=== PATIENT | female | born 1975 | race Caucasian/White ===

== ENCOUNTER 2018-02-10 02:15 | Inpatient (IN) ==
[2018-02-10] MEDS ORDERED: Ondansetron 4 MG/2 ML VIAL IVP PRN (06:13)
[2018-02-10] MEDS ORDERED: Naloxone 0.4 MG/ML INJ IVP PRN (06:13)
--- NOTE | 2018-02-10 06:26 | Internal Med History&Physical ---
Date of Encounter: 02/10/18 Time of Encounter: 06:00 Internal Medicine - H&P: HPI Chief complaint: abdominal pain Admitted From: Hospital to Hospital Transfer Plans for Post Hospital Care: Home History of present illness: Ms. Oglesby is a 42 year old female who presents with a 2 day history of abdominal pain, cramping, appetite loss, and nausea. Symptoms progressively worsened to the point abdominal pain cramping were unbearable. She went to the ER tonight at [facility] and was diagnosed with small bowel obstruction. ER doctor contacted Dr. Dumont for transfer request. Dr. Dumont reviewed the films and felt that this was not acutely surgical. He requested patient be transferred to the hospitalist service with surgical consultation. I spoke with the ER staff at [facility] and accepted the patient in transfer. Upon my assessment of the patient, she is quite uncomfortable. She does have significant pain, which is easily reproducible to palpation. She denies any fevers, chills, night sweats, diarrhea, melena, or hematochezia. She has had some nausea and some vomiting with appetite loss the last 2 days. She denies any recent ill contacts. She has had no prior surgical history except for sections. I reviewed her labs at [facility] and note that she had positive drug screen for amphetamines, marijuana, and opiates. Opiates were positive due to pain medications received at [facility] ER. Patient did admit to using amphetamines this weekend and occasional marijuana. She states she rarely ever uses amphetamines. She denies any cocaine use. She does not drink alcohol but she does smoke. Past Med Surg Social Fam HX - Past Medical History Attestation: Yes The following information was validated with the patient. Source: patient, other (ER records at [facility]) Medical history: migraine Psychiatric history: no psych history - Past Surgical History Surgical History: Additional surgical history: x 3 - Social History Smoking Status: Current every day smoker Packs per day: 0.5 Smokeless Tobacco Status: No Alcohol use: occasionally Drug use: marijuana, methamphetamine Current living situation: Home, With Family Activity Level: Independent ambulation Recent Out of Country Travel Within the Last 8 Weeks: No - Family History Mother Hx Family GI Disorders: No Father Hx Family GI Disorders: No Internal Medicine - H&P: Meds No Known Home Drugs 02/10/18 [History] 3 Allergy/AdvReac Type Severity Reaction Status Date / Time Penicillins Allergy Hives Verified 02/09/18 23:06 - Constitutional Constitutional: no chills, no fever(s), no night sweats - EENT Eyes: no blurry vision, no change in vision Ears: no ear pain, no tinnitus Nose, mouth and throat: no sore throat - Cardiovascular Cardiovascular ROS IM: no chest pain, no dyspnea, no dyspnea on exertion, no edema - Respiratory Respiratory: no cough, no hemoptysis, no chest congestion - Gastrointestinal Gastrointestinal: abdominal pain, cramping, nausea, vomiting, no diarrhea, no hematemesis, no hematochezia, no melena - Genitourinary Genitourinary: no dysuria, no flank pain, no hematuria - Musculoskeletal Musculoskeletal ROS IM: no arthralgias, no back pain - Integumentary Integumentary IM: no rash, no jaundice - Neurological Neurological ROS: no dizziness, no focal weakness, no frequent falls, no headache(s) - Psychiatric Psychiatric: anxiety, no depression - Endocrine Endocrine IM: no polydipsia, no polyuria - Allergic/Immunologic Allergic/Immunologic: no GI upset with certain foods - Constitutional Vitals: Temp Pulse Resp BP Pulse Ox 97.6 F 76 14 101/53 98 02/10/18 05:03 02/10/18 05:03 02/10/18 05:03 02/10/18 05:03 02/10/18 05:03 General appearance: Present: cooperative, mild distress (uncomfortable due to abdominal pain), A&O X 3, pleasant, answers questions appropriately Exam: see below - Head Head exam: Present: normal inspection - Eye Eye exam: Present: EOMI, PERRL. Absent: scleral icterus Pupils: Present: normal accommodation - ENT ENT exam: Present: mucous membranes dry, normal exam, normal oropharynx - Neck Neck exam general surgery: Present: full ROM, supple. Absent: tenderness, nuchal rigidity, thyromegaly - Respiratory Respiratory exam: Present: CTAB. Absent: chest wall tenderness, rales, rhonchi , wheezes - Cardiovascular Cardiovascular exam: Present: RRR, +S1, +S2. Absent: diastolic murmur, systolic murmur, tachycardia - GI/Abdominal GI/Abdominal exam: Present: distended, guarding, hypoactive bowel sounds, tenderness (BLQ; + rebound tenderness to percussion and palpation). Absent: mass - Extremities Exam Extremities exam: Present: full ROM, normal capillary refill, warm, radial pulses palpable and symmetrical. Absent: calf tenderness, joint swelling, pedal edema, tenderness - Back Exam Back exam: Absent: CVA tenderness (L), CVA tenderness (R) - Neurological Exam Neurological exam: Present: alert, CN II-XII intact, oriented X3 - Psychiatric Psychiatric exam: Present: anxious, depressed - Skin Skin exam: Present: dry, intact, warm Internal Med - H&P Results - Labs Labs: I reviewed labs from [facility] and include the following: WBC 18.8 Hemoglobin 12.8 Hematocrit 36.8 Platelet count 280 Sodium 135 Potassium 3.3 Chloride 102 CO2 25 BUN 22 Creatinine 0.86 U/A suggestive of UTI UDS + for opiates, amphetamines, marijuana CT abdomen report reviewed -- possible SBO - Assessment and plan (1) Acute abdominal pain Current Visit: Yes Status: Acute Assessment and plan: 1. Suspicion for SBO based upon CT and exam findings. 2. Will keep npo, on IVF, pain control, anti-emetics, and IV antibiotics. 3. Consult surgery -- discussed with Dr. Dumont. He will see patient this morning. (2) Drug abuse Current Visit: Yes Status: Acute Assessment and plan: 1. Patient admits to amphetamine use infrequently. 2. Counseled patient on cessation and recommend referral per outreach and education social worker. (3) DVT prophylaxis Current Visit: Yes Status: Acute Assessment and plan: 1. Heparin SQ.
[2018-02-10 07:02] LABS: Basophils % 0.2 %; Eosinophils # 0.1 K/mcL (0.0-0.6); Eosinophils % 0.4 %; Hematocrit 33.3 % (35.3-44.9); Hemoglobin 11.2 g/dL (11.5-15.4); Immature Granulocytes % 1.1 % (0-4); Lymphocytes # 1.4 K/mcL (0.6-4.6); Mean Corpuscular HGB Conc 33.6 g/dL (31.6-35.5); Mean Corpuscular Hemoglobin 31.7 pg (28.0-33.3); Mean Corpuscular Volume 94.3 fL (83.0-100.0); Mean Platelet Volume 9.7 fL (9.4-12.4); Monocytes # 0.5 K/mcL (0.0-1.3); Monocytes % 2.8 %; Neutrophils # 14.9 K/mcL (1.6-8.9); Platelet Count 226 K/mcL (140-400); Red Blood Count 3.53 M/mcL (3.82-4.97); Red Cell Distribution Width 13.5 % (11.5-14.5); Segmented Neutrophils % 87.5 %
[2018-02-10 07:18] LABS: INR 1.4; Prothrombin Time 15.9 Seconds (9.4-12.1)
[2018-02-10 07:21] LABS: Activated Partial Thrombo Time 28.7 Seconds (26.0-36.0)
[2018-02-10 07:23] LABS: Alanine Aminotransferase 11 Units/L (7-52); Albumin 3.7 g/dL (3.5-5.7); Albumin/Globulin Ratio 1.7 (1.1-2.2); Alkaline Phosphatase 50 Units/L (34-104); Aspartate Amino Transferase 11 Units/L (13-39); BUN/Creatinine Ratio 26 (6-26); Bilirubin,Total 0.8 mg/dL (0.3-1.0); Blood Urea Nitrogen 17 mg/dL (6-20); Calcium 8.3 mg/dL (8.6-10.3); Carbon Dioxide 21 mEq/L (23-29); Chloride 108 mEq/L (98-107); Globulin 2.2 g/dL (2.4-3.5); Glucose 114 mg/dL (70-105); Osmolality,Calculated 284 (280-300); Potassium 3.5 mEq/L (3.5-5.1); Sodium 136 mEq/L (136-145); Total Protein 5.9 g/dL (6.4-8.9); eGFR For Non-African Americans > 60 (> 60)
--- NOTE | 2018-02-10 09:16 | Internal Med Progress Note ---
<Tutu Longoria - Last Filed: 02/10/18 11:37> Hospitalist Progress Note - Encounter Date of Encounter: 02/10/18 Time of Encounter: 09:12 - Subjective Interval History: Pt seen and examined. She states she is still having abdominal pain and nausea but no vomiting. Has not had a bowel movement or passed gas since Thursday. Complains of headaches which are usual for her migraines. Denies any chest pain , shortness of breath, fever, chills, urinary complaints. - Exam Vitals: Temp Pulse Resp BP Pulse Ox 99.2 F 81 14 110/66 92 02/10/18 06:33 02/10/18 06:33 02/10/18 06:33 02/10/18 06:33 02/10/18 06:33 Exam: GEN: No acute distress HEAD: Atraumatic, normocephalic EYES: Pupils symmetric, sclera white, conjunctiva pink HEART: Regular rate and rhythm, normal S1 and S2, no murmurs LUNGS: CTAB ABD: diffusely tender, nondistended, decreased bowel sounds EXT: no erythema, edema, cyanosis NEURO: No focal deficits, cooperative with exam - Assessment and Plan (1) Small bowel obstruction Current Visit: No Status: Acute Assessment and Plan: As seen on CT scan obtained at [facility] Surgery consulted, awaiting recommendations Continue NPO, IVF hydration, anti-emetics and analgesics She was started on Flagyl and Cipro as her white count was elevated and CT showed nonspecific inflammation at the vaginal wall Blood cultures initially negative, awaiting urine culture (2) Acute abdominal pain Current Visit: Yes Status: Acute Assessment and Plan: Secondary to SBO Plan as above for IV medications (3) Drug abuse Current Visit: Yes Status: Acute Assessment and Plan: UDS positive for opiates, meth, and THC She states she is infrequent meth user (4) UTI (urinary tract infection) Current Visit: No Status: Suspected Assessment and Plan: She denies any urinary symptoms but UA was concerning for UTI Will await cultures Continue on Flagyl, Cipro as above (5) DVT prophylaxis Current Visit: Yes Status: Acute Assessment and Plan: Heparin 5000 units BID DVT Prophylaxis: sq hep - Time Spent with Patient Total time spent is greater than 50% in coordination of care (as documented) at patient's floor/unit and/or counseling patient: Internal Medicine: Result - Labs CBC & Chem 7: 02/10/18 06:41 02/10/18 06:41 Labs: Short CBC 02/10/18 Range/Units 06:41 WBC 17.1 H (4.3-11.1) K/mcL Hgb 11.2 L D (11.5-15.4) g/dL Hct 33.3 L (35.3-44.9) % Plt Count 226 (140-400) K/mcL Neutrophils # 14.9 H (1.6-8.9) K/mcL BMP 02/10/18 06:41 Sodium 136 Potassium 3.5 Chloride 108 H Carbon Dioxide 21 L BUN 17 Creatinine 0.66 Glucose 114 H Calcium 8.3 L Liver Function 02/10/18 Range/Units 06:41 Total Bilirubin 0.8 (0.3-1.0) mg/dL AST 11 L (13-39) Units/L ALT 11 (7-52) Units/L Alkaline Phosphatase 50 (34-104) Units/L Albumin 3.7 (3.5-5.7) g/dL - ABG Interpretation ABG results: PT/INR, D-dimer PT 15.9 Seconds (9.4-12.1) H 02/10/18 06:41 Consult Discharge Plan - Plan Referrals: Idris Benitez, CLINICAL SUPPORT MANAGER [Non-Partnered Physician] - 02/18/18 3:00 pm <Flory Moralez - Last Filed: 02/10/18 17:57> Hospitalist Progress Note - Encounter Date of Encounter: 02/10/18 - Exam Vitals: Temp Pulse Resp BP Pulse Ox 98.8 F 73 18 106/70 96 02/10/18 16:03 02/10/18 16:03 02/10/18 16:03 02/10/18 16:03 02/10/18 16:03 - Assessment and Plan (1) Acute abdominal pain Current Visit: Yes Status: Acute (2) Drug abuse Current Visit: Yes Status: Acute (3) DVT prophylaxis Current Visit: Yes Status: Acute - Time Spent with Patient Total time spent is greater than 50% in coordination of care (as documented) at patient's floor/unit and/or counseling patient: Internal Medicine: Result - Labs CBC & Chem 7: 02/10/18 06:41 02/10/18 06:41 Labs: Short CBC 02/10/18 Range/Units 06:41 WBC 17.1 H (4.3-11.1) K/mcL Hgb 11.2 L D (11.5-15.4) g/dL Hct 33.3 L (35.3-44.9) % Plt Count 226 (140-400) K/mcL Neutrophils # 14.9 H (1.6-8.9) K/mcL BMP 02/10/18 06:41 Sodium 136 Potassium 3.5 Chloride 108 H Carbon Dioxide 21 L BUN 17 Creatinine 0.66 Glucose 114 H Calcium 8.3 L Liver Function 02/10/18 Range/Units 06:41 Total Bilirubin 0.8 (0.3-1.0) mg/dL AST 11 L (13-39) Units/L ALT 11 (7-52) Units/L Alkaline Phosphatase 50 (34-104) Units/L Albumin 3.7 (3.5-5.7) g/dL - ABG Interpretation ABG results: PT/INR, D-dimer PT 15.9 Seconds (9.4-12.1) H 02/10/18 06:41 - Attending Attestation I examined this patient and my medical decision-making was reviewed with the Resident Physician Dr. Longoria. I agree with the documented findings, disposition and treatment plan as described except to the extent set forth below. Ms. Oglesby is a 42 year old female who presents with a 2 day history of abdominal pain, cramping, loss of appetite, and nausea. Her CT of abd at [facility] showed ?? SBO and PID. She denied any N/V now. Denied any epigastric abd pain. However she still c/o severe lower abdominal pain, mostly in left side. Gen: A, A, O x3 Chest: Diminished BS b/l Heart: S1S2+ RRR No murmurs Abd: Soft, moderate tenderness in LLQ a/p 1. Acute intractable Abd pain 2. Possible PID 3. ?? SBO Reviewed CT of Abd / Pelvis showed vaginal wall thickening , with fluid in vaginal fornices her pain also concerning for pID will check GC and Chlamydia cont Flagyl also switch to Rocephin Does not look like SBO No need of surgery eval advance diet as she tolerates <Tutu Longoria - Last Filed: 02/10/18 11:37> (4) UTI (urinary tract infection) Qualifiers: Urinary tract infection type: site unspecified Hematuria presence: without hematuria Qualified Code(s): N39.0 - Urinary tract infection, site not specified
[2018-02-10] MEDS: *HR* FentaNYL (PF) 100 MCG/2 ML VIAL IVP PRN ×2 (10:02→17:48)
[2018-02-10] MEDS: MetroNIDAZOLE 500 MG/100 ML 500 MG/100 ML BAG IVPB SCH ×2 (10:03→17:41)
[2018-02-10] MEDS: 0.9 % Sodium Chloride w KCl 20 MEQ/1,000 ML MLS IVC SCH ×2 (10:03→20:39)
--- NOTE | 2018-02-10 16:41 | Electrocardiograph Report ---
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
[2018-02-10] MEDS: *HR* Heparin 5,000 UNIT/ML VIAL SQ SCH (17:40)
[2018-02-11] MEDS: *HR* FentaNYL (PF) 100 MCG/2 ML VIAL IVP PRN ×3 (00:11→10:41)
[2018-02-11] MEDS: MetroNIDAZOLE 500 MG/100 ML 500 MG/100 ML BAG IVPB SCH ×3 (01:47→18:59)
[2018-02-11] MEDS: *HR* Heparin 5,000 UNIT/ML VIAL SQ SCH ×2 (05:19→18:59)
[2018-02-11 05:29] LABS: Basophils % 0.3 %; Eosinophils # 0.4 K/mcL (0.0-0.6); Eosinophils % 4.3 %; Hematocrit 32.3 % (35.3-44.9); Hemoglobin 10.4 g/dL (11.5-15.4); Immature Granulocytes % 0.4 % (0-4); Lymphocytes # 1.4 K/mcL (0.6-4.6); Lymphocytes % 14.3 %; Mean Corpuscular HGB Conc 32.2 g/dL (31.6-35.5); Mean Corpuscular Hemoglobin 30.8 pg (28.0-33.3); Mean Corpuscular Volume 95.6 fL (83.0-100.0); Mean Platelet Volume 9.9 fL (9.4-12.4); Monocytes # 0.4 K/mcL (0.0-1.3); Monocytes % 4.3 %; Neutrophils # 7.6 K/mcL (1.6-8.9); Platelet Count 239 K/mcL (140-400); Red Blood Count 3.38 M/mcL (3.82-4.97); Red Cell Distribution Width 14.1 % (11.5-14.5); Segmented Neutrophils % 76.4 %
[2018-02-11 05:52] LABS: BUN/Creatinine Ratio 14 (6-26); Blood Urea Nitrogen 9 mg/dL (6-20); Calcium 8.4 mg/dL (8.6-10.3); Carbon Dioxide 21 mEq/L (23-29); Chloride 111 mEq/L (98-107); Glucose 91 mg/dL (70-105); Osmolality,Calculated 280 (280-300); Potassium 4.2 mEq/L (3.5-5.1); Sodium 136 mEq/L (136-145); eGFR For Non-African Americans > 60 (> 60)
--- NOTE | 2018-02-11 10:48 | Internal Med Progress Note ---
<Sol Rhodes - Last Filed: 02/11/18 17:54> Hospitalist Progress Note - Encounter Date of Encounter: 02/11/18 Time of Encounter: 14:28 - Subjective Interval History: 42 y/o female history of sections presented with abdominal pain, vaginal discharge and nausea onset about one week ago.. She reports her menses stated last with dark and odorous discharge that was unusually painful and heavy. Her discharge is still dark and smelly but spotting. She has possible exposure to STDs with boyfriend who had multiple other partners. She reports pain less constant but remains diffuse abdominal pain with sharp pain in lower left quadrant is worse with urination, stooling and coughing. She admits to diaphoresis but denies fever, chills, vomiting, diarrhea, burning with urination, shortness of breath or chest pain. She has tolerated coffee and milk well but did not eat breakfast. Admits to frequent urination and last BM was Thursday or Thursday and was difficult - she has chronic constipation - Exam Vitals: Temp Pulse Resp BP Pulse Ox 97.9 F 70 15 110/75 99 02/11/18 06:16 02/11/18 06:16 02/11/18 06:16 02/11/18 06:16 02/11/18 06:16 Exam: General : pleasant, mild acute distress, A&Ox3 Cardiac: RRR no murmurs or gallop Respiratory: CTAB no wheeze or rales Abdomen: guarding , diffuse pain with light touch, tenderness worse in left lower quadrant, Soft, not distended, no masses or organomegaly , No CVA tenderness Extremities: pulses intact, no pedal edema - Assessment and Plan (1) Abdominal pain Current Visit: Yes Status: Acute Assessment and Plan: Possibly multifactoral with signs of PID and UTI. Unlikely to be small bowel obstruction as symptoms do not correlate and only mild fluid level dilation. - start Colace CT ABD from [facility] on 02-10: "There is mild fluid-filled dilation of small bowel in the mid to lower abdomen and pelvis, nonspecific finding, but raise the possibility of small bowel obstruction. Consider further evaluation with a small bowel follow-through. Possible vaginal wall thickening, with fluid in the vaginal fornices. Again, this is nonspecific, but correlate with clinical evidence of pelvic inflammation/infection. No ureteral calculus is identified. Punctate nonobstructing right-sided nephrolithiasis is noted." (2) PID (acute pelvic inflammatory disease) Current Visit: Yes Status: Acute Assessment and Plan: WBC down to 9.[address] showing vaginal thickening and fluid in fornices - HIV negative - beta HCG 1, negative - urine antigens chlamydia and gonorrhoeae: pending - blood cultures pending - continue flagyl -discontinue cipro - start Rocephin - advance diet as tolerated - consulted BILLIARD TABLE REPAIRER to advise if ultrasound needed (3) UTI (urinary tract infection) Current Visit: Yes Status: Acute Assessment and Plan: UTI may attribute to abdominal pain [place] results: - UA large esterase & WBC 5-15 - urine cultures : gram negtive rods - start rocephin - discontinue cipro (4) Drug abuse Current Visit: Yes Status: Acute Assessment and Plan: -presumptive positive opioid due to treatment - positive amphetamine and THC DVT Prophylaxis: sq hep - Time Spent with Patient Total time spent is greater than 50% in coordination of care (as documented) at patient's floor/unit and/or counseling patient: Greater than 35 minutes Plan of Care Discussed with: patient Internal Medicine: Result - Labs CBC & Chem 7: 02/11/18 05:02 02/11/18 05:02 Labs: Short CBC 02/11/18 Range/Units 05:02 WBC 9.9 (4.3-11.1) K/mcL Hgb 10.4 L (11.5-15.4) g/dL Hct 32.3 L (35.3-44.9) % Plt Count 239 (140-400) K/mcL Neutrophils # 7.6 (1.6-8.9) K/mcL BMP 02/11/18 05:02 Sodium 136 Potassium 4.2 Chloride 111 H Carbon Dioxide 21 L BUN 9 Creatinine 0.65 Glucose 91 Calcium 8.4 L - ABG Interpretation ABG results: PT/INR, D-dimer PT 15.9 Seconds (9.4-12.1) H 02/10/18 06:41 Consult Discharge Plan - Plan Referrals: Idris Benitez, AUTOS DISASSEMBLER [Non-Partnered Physician] - 02/18/18 3:00 pm <Flory Moralez - Last Filed: 02/12/18 08:54> Hospitalist Progress Note - Encounter Date of Encounter: 02/11/18 - Exam Vitals: Temp Pulse Resp BP Pulse Ox 97.6 F 62 14 113/65 100 02/12/18 07:29 02/12/18 07:29 02/12/18 07:29 02/12/18 07:29 02/12/18 03:51 - Assessment and Plan (1) Acute abdominal pain Current Visit: Yes Status: Inactive (2) Drug abuse Current Visit: Yes Status: Acute (3) DVT prophylaxis Current Visit: Yes Status: Acute - Time Spent with Patient Total time spent is greater than 50% in coordination of care (as documented) at patient's floor/unit and/or counseling patient: Internal Medicine: Result - Labs CBC & Chem 7: 02/12/18 03:51 02/11/18 05:02 Labs: Short CBC 02/12/18 Range/Units 03:51 WBC 6.2 (4.3-11.1) K/mcL Hgb 11.4 L (11.5-15.4) g/dL Hct 34.7 L (35.3-44.9) % Plt Count 284 (140-400) K/mcL Neutrophils # 3.3 (1.6-8.9) K/mcL BMP 02/11/18 05:02 Sodium 136 Potassium 4.2 Chloride 111 H Carbon Dioxide 21 L BUN 9 Creatinine 0.65 Glucose 91 Calcium 8.4 L - ABG Interpretation ABG results: PT/INR, D-dimer PT 15.9 Seconds (9.4-12.1) H 02/10/18 06:41 - Impressions Impressions Abdomen/Pelvis/Transvag US 02/11/18 19:00 IMPRESSION: Suspect inflamed left fallopian tube. Further evaluation may be warranted with contrast-enhanced CT if clinically appropriate. Ovaries appear within normal limits. No evidence for torsion. D/ / Samson Ortiz / Samson Ortiz Interpreting Provider: Samson Ortiz - Attending Attestation I examined this patient and my medical decision-making was reviewed with the Resident Physician Dr. Rhodes. I agree with the documented findings, disposition and treatment plan as described except to the extent set forth below. Ms. Oglesby is a 42 year old female who presents with a 2 day history of abdominal pain, cramping, loss of appetite, and nausea. Her CT of abd at [facility] showed ?? SBO and PID. She denied any N/V now. Denied any epigastric abd pain. However she still c/o moderate lower abdominal pain, mostly in left side. Gen: A, A, O x3 Chest: Diminished BS b/l Heart: S1S2+ RRR No murmurs Abd: Soft, moderate tenderness in LLQ a/p 1. Acute intractable Abd pain 2. Possible PID 3. ?? SBO Her abd pain is better today Her GC came back positive [employer] To[employer] Former consulted Cont Flagyl and Rocephin Does not look like SBO No need of surgery eval advance diet as she tolerates
[2018-02-11] MEDS: cefTRIAXone 2,000 MG in Water for inj. (sterile) 20 ML 20 ML IVP SCH (12:50)
[2018-02-11] MEDS ORDERED: *HR* FentaNYL (PF) 100 MCG/2 ML VIAL IVP PRN (14:23)
--- NOTE | 2018-02-11 15:16 | OB/GYN Consult Note ---
Date of Encounter: 02/11/18 Time of Encounter: 15:14 Assessment and Plan (1) PID (acute pelvic inflammatory disease) Current Visit: Yes Status: Acute 1. Patient beta-hCG is negative 2. Patient is positive for Neisseria gonorrhea via DNA PCR 3. Transvaginal ultrasound is pending 4. Pelvic exam performed and shows dark fluid within the vaginal vault. G&C swab performed and is pending. Patient is positive for bilateral adnexal tenderness as well as chandeliers sign to bimanual exam. (2) Abdominal pain Current Visit: Yes Status: Acute Qualifiers: Abdominal location: left lower quadrant Qualified Code(s): R10.32 - Left lower quadrant pain History of Present Illness Consult date: 02/11/18 Requesting physician: Sol Rhodes Reason for consult: other (Vaginal discharge) Chief complaint: Abdominal pain History of present illness: Patient is a 42-year-old female referred for [employer] consult by [facility] medicine due to abnormal CT imaging which showed a thickened vaginal wall with free fluid in the fornices, in conjunction with abdominal pain and vaginal discharge. The patient states that she is currently at the end of her menstrual cycle which has been a heavier flow than usual, patient states that she was changing pads every half hour to an hour for approximately 8 days but is unable to estimate total number of tampons/pads used per day. Patient states that she has had a darker colored discharge during this menstrual cycle, and that the discharge has had a foul odor. The patient is currently complaining of diffuse abdominal pain with tenderness to palpation, worse in the right and left lower quadrants with guarding and rebound present. The patient states that palpation of her abdominal quadrants leads to "achiness", but that rebound tenderness feels like "an electric shock" . Patient states that she is concerned for possible STI exposure with current sexual partner but is unable to identify a particular pathogen. Past Med Surg Social Fam HX - Past Medical History Medical history: migraine Psychiatric history: no psych history - Past Surgical History Surgical History: Additional surgical history: x 3 - Social History Smoking Status: Current every day smoker Packs per day: 0.5 Smokeless Tobacco Status: No Alcohol use: occasionally Drug use: marijuana, methamphetamine - Family History Mother Hx Family GI Disorders: No Father Hx Family GI Disorders: No Medications and Allergies No Known Home Drugs 02/10/18 [History] 3 Allergy/AdvReac Type Severity Reaction Status Date / Time Penicillins Allergy Hives Verified 02/09/18 23:06 Review of Systems All Systems: reviewed and no additional remarkable complaints except as stated Constitutional: chills, fever(s) Nose, mouth and throat: dizziness, no disequilibrium Cardiovascular: no chest pain, no dyspnea, no syncope Respiratory: no cough, no dyspnea, no hemoptysis Gastrointestinal: abdominal pain, constipation, cramping, nausea, no diarrhea, no hematemesis, no hematochezia, no vomiting Genitourinary Female: dysuria, menorrhagia, no hematuria Menstruation: currently menstrual, period heavy Musculoskeletal: no numbness, no tingling Neurological: dizziness, no disequilibrium, no lack of coordination, no loss of vision, no numbness, no paresthesias, no syncope, no tingling Exam - Vital Signs Vital signs: Initial Vital Signs Temp Pulse Resp BP Pulse Ox 97.6 F 76 14 101/53 98 02/10/18 05:03 02/10/18 05:03 02/10/18 05:03 02/10/18 05:03 02/10/18 05:03 - Constitutional Constitutional: well developed, well nourished, average body habitus, moderate distress - HEENT HEENT: EOMI, PERRL, Normocephaly, Mucus Membranes Moist - Lungs Respiratory exam: CTAB - Cardiovascular Cardiovascular exam: RRR, +S1, +S2 - Abdomen Abdomen: Present: bowel sounds normal, diffuse tenderness, guarding noted. Absent: bruit present, hepatomegaly, splenomegaly Abdomen detail: right upper quadrant: tenderness, right lower quadrant: tenderness, left upper quadrant: tenderness, left lower quadrant: tenderness - Vagina Vagina: Present: discharge - Cervix Cervix: Present: discharge. Absent: friable - Adnexa Adnexa: bilateral: tenderness Results Result Diagrams: 02/11/18 05:02 02/11/18 05:02 Abnormal lab results RBC 3.38 M/mcL (3.82-4.97) L 02/11/18 05:02 Hgb 10.4 g/dL (11.5-15.4) L 02/11/18 05:02 Hct 32.3 % (35.3-44.9) L 02/11/18 05:02 PT 15.9 Seconds (9.4-12.1) H 02/10/18 06:41 Chloride 111 mEq/L (98-107) H 02/11/18 05:02 Carbon Dioxide 21 mEq/L (23-29) L 02/11/18 05:02 Calcium 8.4 mg/dL (8.6-10.3) L 02/11/18 05:02 AST 11 Units/L (13-39) L 02/10/18 06:41 Serum Total Protein 5.9 g/dL (6.4-8.9) L 02/10/18 06:41 Globulin 2.2 g/dL (2.4-3.5) L 02/10/18 06:41 All other labs normal. Consult Discharge Plan - Plan Referrals: Idris Benitez CNP [Non-Partnered Physician] - 02/18/18 3:00 pm - Attending Attestation Patient was seen and examined with the resident. I reviewed the resident's history and physical and evaluation and assessment and agree with its contents. Martín An MD,FACOG
[2018-02-11 15:41] LABS: Chlamydia Trachomatis DNA Ur NOT DETECTED (Not Detect)
[2018-02-11] MEDS: *HR* OxyCODONE/APAP 5/325 TABLET PO PRN (18:58)
[2018-02-12] MEDS: MetroNIDAZOLE 500 MG/100 ML 500 MG/100 ML BAG IVPB SCH ×2 (02:45→09:19)
[2018-02-12] MEDS: *HR* OxyCODONE/APAP 5/325 TABLET PO PRN ×3 (04:29→21:52)
[2018-02-12 04:48] LABS: Basophils % 0.6 %; Eosinophils # 0.6 K/mcL (0.0-0.6); Eosinophils % 9.8 %; Hematocrit 34.7 % (35.3-44.9); Hemoglobin 11.4 g/dL (11.5-15.4); Immature Granulocytes % 0.3 % (0-4); Lymphocytes # 1.9 K/mcL (0.6-4.6); Mean Corpuscular HGB Conc 32.9 g/dL (31.6-35.5); Mean Corpuscular Hemoglobin 31.7 pg (28.0-33.3); Mean Corpuscular Volume 96.4 fL (83.0-100.0); Mean Platelet Volume 10.4 fL (9.4-12.4); Monocytes # 0.3 K/mcL (0.0-1.3); Monocytes % 5.5 %; Neutrophils # 3.3 K/mcL (1.6-8.9); Platelet Count 284 K/mcL (140-400); Red Cell Distribution Width 13.7 % (11.5-14.5); Segmented Neutrophils % 53.8 %
[2018-02-12] MEDS: *HR* Heparin 5,000 UNIT/ML VIAL SQ SCH ×2 (05:51→16:48)
--- NOTE | 2018-02-12 11:51 | Internal Med Progress Note ---
<Sol Rhodes - Last Filed: 02/12/18 14:20> Hospitalist Progress Note - Encounter Date of Encounter: 02/12/18 Time of Encounter: 14:20 - Subjective Interval History: 42 y/o female history of sections treated for PID abdominal whose abdominal pain has improved but still regularly requiring PRN Perocet. She has tolerated food. She has chronic constipation and last BM was Thursday or Thursday and was difficult. No events overnight. Denies nausea, fever, chills, vomiting, diarrhea, burning with urination, shortness of breath or chest pain. - Exam Vitals: Temp Pulse Resp BP Pulse Ox 97.6 F 73 16 138/78 100 02/12/18 11:37 02/12/18 11:37 02/12/18 11:37 02/12/18 11:37 02/12/18 03:51 Exam: General : pleasant, mild acute distress, A&Ox3 Cardiac: RRR no murmurs or gallop Respiratory: CTAB no wheeze or rales Abdomen: diffuse pain with light touch, tenderness worse in left lower quadrant , Soft, not distended, no masses or organomegaly Extremities: pulses intact, no pedal edema - Assessment and Plan (1) Abdominal pain Current Visit: Yes Status: Acute Assessment and Plan: likely due to PID (2) PID (acute pelvic inflammatory disease) Current Visit: Yes Status: Acute Assessment and Plan: I discussed case with ART GALLERY DIRECTOR over phone- They do not believe this is an abscess formation. Advised to continue antibiotic treatment - may change to oral when clinically ready for discharge. There is no harm in adding doxycycline to treatment. She will f/u out patient in [place] on 02-22-18. - Transvaginal Ultrasound on 02-12: inflamed left fallopian tube. - Gonorrhoea urine antigen positive - WBC 6.2 from 17.1 on admit - continue Rocephin, change to PO on discharge - start doxycycline -Negative results:HIV, beta HG, and chlamydia urine antigen. (3) UTI (urinary tract infection) Current Visit: Yes Status: Acute Assessment and Plan: UTI may attribute to abdominal pain [place] results: - UA large esterase & WBC 5-15 - urine cultures : E Coli - continue rocephin DVT Prophylaxis: sq hep - Summary of Assessment and Plan Summary of Assessment and Plan: Continue inpatient treatment with IV antibiotics until clinically improves then discharge to home on PO abx - Time Spent with Patient Total time spent is greater than 50% in coordination of care (as documented) at patient's floor/unit and/or counseling patient: Internal Medicine: Result - Labs CBC & Chem 7: 02/12/18 03:51 02/11/18 05:02 Labs: Short CBC 02/12/18 Range/Units 03:51 WBC 6.2 (4.3-11.1) K/mcL Hgb 11.4 L (11.5-15.4) g/dL Hct 34.7 L (35.3-44.9) % Plt Count 284 (140-400) K/mcL Neutrophils # 3.3 (1.6-8.9) K/mcL BMP 02/11/18 05:02 Sodium 136 Potassium 4.2 Chloride 111 H Carbon Dioxide 21 L BUN 9 Creatinine 0.65 Glucose 91 Calcium 8.4 L - ABG Interpretation ABG results: PT/INR, D-dimer PT 15.9 Seconds (9.4-12.1) H 02/10/18 06:41 - Impressions Impressions Abdomen/Pelvis/Transvag US 02/11/18 19:00 IMPRESSION: Suspect inflamed left fallopian tube. Further evaluation may be warranted with contrast-enhanced CT if clinically appropriate. Ovaries appear within normal limits. No evidence for torsion. D/ / Samson Ortiz / Samson Ortiz Interpreting Provider: Samson Ortiz Consult Discharge Plan - Plan Referrals: Idris Benitze, MAIL ORDER BILLER [Non-Partnered Physician] - 02/18/18 3:00 pm Prescriptions: OxyCODONE/APAP 5/325 [Percocet 5/325 MG] 1 each PO Q8HR PRN 5 Days #15 tablet PRN Reason: Pain Doxycycline Hyclate 100 mg PO BID #28 tablet. <Flory Moralez - Last Filed: 02/12/18 17:33> Hospitalist Progress Note - Encounter Date of Encounter: 02/12/18 - Exam Vitals: Temp Pulse Resp BP Pulse Ox 97.8 F 62 16 131/87 97 02/12/18 15:00 02/12/18 15:00 02/12/18 15:00 02/12/18 15:00 02/12/18 15:00 - Assessment and Plan (1) Acute abdominal pain Current Visit: Yes Status: Inactive (2) Drug abuse Current Visit: Yes Status: Acute (3) DVT prophylaxis Current Visit: Yes Status: Acute - Time Spent with Patient Total time spent is greater than 50% in coordination of care (as documented) at patient's floor/unit and/or counseling patient: Internal Medicine: Result - Labs CBC & Chem 7: 02/12/18 03:51 02/11/18 05:02 Labs: Short CBC 02/12/18 Range/Units 03:51 WBC 6.2 (4.3-11.1) K/mcL Hgb 11.4 L (11.5-15.4) g/dL Hct 34.7 L (35.3-44.9) % Plt Count 284 (140-400) K/mcL Neutrophils # 3.3 (1.6-8.9) K/mcL - ABG Interpretation ABG results: PT/INR, D-dimer PT 15.9 Seconds (9.4-12.1) H 02/10/18 06:41 - Impressions Impressions Abdomen/Pelvis/Transvag US 02/11/18 19:00 IMPRESSION: Suspect inflamed left fallopian tube. Further evaluation may be warranted with contrast-enhanced CT if clinically appropriate. Ovaries appear within normal limits. No evidence for torsion. D/ / Samson Ortiz / Samson Ortiz Interpreting Provider: Samson Ortiz - Attending Attestation I examined this patient and my medical decision-making was reviewed with the Resident Physician Dr. Rhodes. I agree with the documented findings, disposition and treatment plan as described except to the extent set forth below. Ms. Oglesby is a 42 year old female who presents with a 2 day history of abdominal pain, cramping, loss of appetite, and nausea. Her CT of abd at [facility] showed ?? SBO and PID. She denied any N/V now. Denied any epigastric abd pain. Her left lower abd pain better today Gen: A, A, O x3 Chest: Diminished BS b/l Heart: S1S2+ RRR No murmurs Abd: Soft, moderate tenderness in LLQ a/p 1. Acute intractable Abd pain 2. Acute PID 3. Acute GC infection Her abd pain is better today Her GC came back positive Auto Radiator Mechanic consulted Her trans vaginal U/S showed inflammed Left fallopian tube Cont Flagyl and Rocephin Had give Azithromycin 2gm x PO 1 dose will d/c home on PO Doxy advance diet as she tolerates <Sol Rhodes - Last Filed: 02/12/18 14:20> (1) Abdominal pain Qualifiers: Abdominal location: left lower quadrant Qualified Code(s): R10.32 - Left lower quadrant pain
[2018-02-12] MEDS: cefTRIAXone 2,000 MG in Water for inj. (sterile) 20 ML 20 ML IVP SCH (12:15)
--- NOTE | 2018-02-12 13:51 | OB/GYN Consult Note ---
Date of Encounter: 02/12/18 Time of Encounter: 13:46 Assessment and Plan (1) PID (acute pelvic inflammatory disease) Current Visit: Yes Status: Acute Continue treatment as ordered. Plan to treat chlamydia also since chlamydia testing was done on urine. Pt reports significant improvement of pain since starting antibiotics. We will sign off at this time. Pt may be discharged when cleared by IM. We have scheduled a PRECISION LENS GRINDER APPRENTICE follow-up 03/04/18 at 1:15pm in [place] per pt request. (2) Abdominal pain Current Visit: Yes Status: Acute Qualifiers: Abdominal location: left lower quadrant Qualified Code(s): R10.32 - Left lower quadrant pain History of Present Illness Consult date: 02/12/18 Requesting physician: Flory Moralez Reason for consult: pelvic pain, other (PID) History of present illness: Pt reprots feeling better today s/p antibiotics and pain medications. She continues to have constipation but is otherwise having significantly less pain. She has not been sexually active for the last month since her boyfriend went to penitentiary. She now has a new boyfriend but they have not had intercourse. She also reports that she has not had a pap for about 18 years. Past Med Surg Social Fam HX - Past Medical History Medical history: migraine Psychiatric history: no psych history - Past Surgical History Surgical History: Additional surgical history: x 3 - Social History Smoking Status: Current every day smoker Packs per day: 0.5 Smokeless Tobacco Status: No Alcohol use: occasionally Drug use: marijuana, methamphetamine - Family History Mother Hx Family GI Disorders: No Father Hx Family GI Disorders: No Medications and Allergies No Known Home Drugs 02/10/18 [History] 3 Allergy/AdvReac Type Severity Reaction Status Date / Time Penicillins Allergy Hives Verified 02/09/18 23:06 Review of Systems Constitutional: no fever(s) Breasts: no mass Gastrointestinal: constipation, no nausea, no vomiting Genitourinary Female: pelvic pain (improved) Menstruation: currently menstrual Exam - Vital Signs Vital signs: Initial Vital Signs Temp Pulse Resp BP Pulse Ox 97.6 F 76 14 101/53 98 02/10/18 05:03 02/10/18 05:03 02/10/18 05:03 02/10/18 05:03 02/10/18 05:03 - Constitutional Constitutional: well developed, well nourished, no acute distress - HEENT HEENT: Mucus Membranes Moist - Lungs Respiratory exam: CTAB - Cardiovascular Cardiovascular exam: RRR - Abdomen Abdomen detail: right lower quadrant: tenderness, left lower quadrant: tenderness - Extremities Extremities exam: normal inspection Results Result Diagrams: 02/12/18 03:51 02/11/18 05:02 Abnormal lab results RBC 3.60 M/mcL (3.82-4.97) L 02/12/18 03:51 Hgb 11.4 g/dL (11.5-15.4) L 02/12/18 03:51 Hct 34.7 % (35.3-44.9) L 02/12/18 03:51 PT 15.9 Seconds (9.4-12.1) H 02/10/18 06:41 Chloride 111 mEq/L (98-107) H 02/11/18 05:02 Carbon Dioxide 21 mEq/L (23-29) L 02/11/18 05:02 Calcium 8.4 mg/dL (8.6-10.3) L 02/11/18 05:02 AST 11 Units/L (13-39) L 02/10/18 06:41 Serum Total Protein 5.9 g/dL (6.4-8.9) L 02/10/18 06:41 Globulin 2.2 g/dL (2.4-3.5) L 02/10/18 06:41 U N.gonorrhoeae DNA PCR DETECTED (Not Detect) A 02/11/18 12:59 All other labs normal. Consult Discharge Plan - Plan Referrals: Idris Benitez CNP [Non-Partnered Physician] - 02/18/18 3:00 pm
[2018-02-12] MEDS ORDERED: Azithromycin 250 MG TABLET PO ONE (14:07)
[2018-02-13 05:02] LABS: Basophils # 0.1 K/mcL (0.0-0.2); Basophils % 1.1 %; Eosinophils # 0.7 K/mcL (0.0-0.6); Eosinophils % 10.3 %; Hematocrit 39.8 % (35.3-44.9); Immature Granulocytes % 1.5 % (0-4); Lymphocytes % 31.5 %; Mean Corpuscular HGB Conc 32.7 g/dL (31.6-35.5); Mean Corpuscular Hemoglobin 31.6 pg (28.0-33.3); Mean Corpuscular Volume 96.8 fL (83.0-100.0); Mean Platelet Volume 9.7 fL (9.4-12.4); Monocytes # 0.4 K/mcL (0.0-1.3); Monocytes % 5.7 %; Neutrophils # 3.2 K/mcL (1.6-8.9); Platelet Count 318 K/mcL (140-400); Red Blood Count 4.11 M/mcL (3.82-4.97); Red Cell Distribution Width 13.7 % (11.5-14.5); Segmented Neutrophils % 49.9 %
[2018-02-13] MEDS: *HR* OxyCODONE/APAP 5/325 TABLET PO PRN ×2 (05:06→12:36)
[2018-02-13] MEDS: *HR* Heparin 5,000 UNIT/ML VIAL SQ SCH (05:08)
[2018-02-13] MEDS ORDERED: Ketorolac 15 MG/ML VIAL IVP ONE (05:29)
[2018-02-13 07:44] VITALS: BP 139/79
--- NOTE | 2018-02-13 09:10 | Discharge Summary ---
- NOTES TO OUTPATIENT PROVIDER Notes to Outpatient Provider: f/u with PCP in one week. f/u with Gynecology as scheduled Orders not resulted at time of discharge: Pending orders 02/14/18 04:00 Complete Blood Count [HEME] AM 0400 Date of Encounter: 02/13/18 Time of Encounter: 09:05 - Discharge Diagnosis (1) PID (acute pelvic inflammatory disease) Priority: Primary Status: Acute (2) Acute abdominal pain Priority: Primary Status: Inactive (3) Drug abuse Priority: Secondary Status: Acute (4) DVT prophylaxis Priority: Secondary Status: Acute Hospital course: Ms. Oglesby is a 42 year old female who presents with a 2 day history of abdominal pain, cramping, loss of appetite, and nausea. Her CT of abd at [place] showed ?? SBO and PID. She was started on empirical abx Cipro and flagyl initially , later switched to Rocephin and Flagyl with concerns of PID. Her Gonococci came back as positive. Her trans vaginal U/S showed inflammed Left fallopian tube. Pt was evaluated by Reversing Mill Roller, who recommend to give her Azithromycin 2gm PO x 1 dose and d/c home on PO Doxy for 2 weeks. She denied any N/V now. Her left lower abd pain better today. So will d/c her home in stable condition today. - Time Spent with Patient Total time spent providing and/or coordinating discharge services: - Discharge Medications Prescriptions: OxyCODONE/APAP 5/325 [Percocet 5/325 MG] 1 each PO Q8HR PRN 5 Days #15 tablet PRN Reason: Pain Doxycycline Hyclate 100 mg PO BID #28 tablet. Home Medications: Doxycycline Hyclate 100 mg PO BID #28 tablet. 02/12/18 [Rx] OxyCODONE/APAP 5/325 [Percocet 5/325 MG] 1 each PO Q8HR PRN 5 Days #15 tablet [Rx] Allergies/Adverse Reactions: 3 Allergy/AdvReac Type Severity Reaction Status Date / Time Penicillins Allergy Hives Verified 02/09/18 23:06 Date of admission: 02/10/18 12:33 Primary care physician: PCP NONE Consults: 02/10/18 15:04 Consult to Wheel Press Operator [CONS] Routine Reason for SW Consult: For substance abuse 02/11/18 13:24 Consult to SECURITY SUPPORT ANALYST [CONS] Routine Consulting Provider: SPRAY GUN OPERATOR Arabella Reason for Consult: PID Call Completed: Yes - Constitutional Vitals: Temp Pulse Resp BP Pulse Ox 97.7 F 64 16 139/79 97 02/13/18 07:42 02/13/18 07:42 02/13/18 07:42 02/13/18 07:42 02/13/18 07:42 General appearance: Present: cooperative, A&O X 3, pleasant, answers questions appropriately Exam: Chest: Diminished BS b/l Heart: S1S2+ RRR No murmurs Abd: Soft, mild tenderness in LLQ - Patient Status Disposition: Home, Self-Care Condition: Good Overall status at discharge: patient is back to baseline - Discharge Instructions Follow Up With: Idris Benitez TIMBER TREATMENT PLANT OPERATOR [Non-Partnered Physician] - 02/18/18 3:00 pm - Diet and Activity Activity: increase activity as tolerated Diet: low salt diet
[2018-02-13] MEDS: cefTRIAXone 2,000 MG in Water for inj. (sterile) 20 ML 20 ML IVP SCH (12:34)
== END 2018-02-13 12:50 | disposition home or self-care (01) | DRG 531 ==
LOC: 2NENU
PROVIDERS: ADMIT Pediatrics; ATTEND Pediatrics